=== PATIENT | male | born 1960 | race Caucasian/White ===

== ENCOUNTER → 2021-07-27 10:29 | Outpatient (BNVA) | payer OTHER, SELFPAY | PROVIDERS: PCP Internal Medicine; Visit Provider Psychiatry & Neurology Neurology ==

== ENCOUNTER → 2021-09-07 12:57 | Outpatient (REF) | payer OTHER, SELFPAY | LOC: HO.SL 12:57 | PROVIDERS: PCP Internal Medicine; Visit Provider Psychiatry & Neurology Neurology | DX: G47.33 Obstructive sleep apnea (adult) (pediatric) (principal) | CPT/HCPCS: 95806 ==

== ENCOUNTER 2025-03-16 09:41 | Outpatient (REF) | payer OTHER, SELFPAY ==
--- NOTE | ~2025-03-16 | XR_ITS ---
CLINICAL HISTORY: M25.532 - Pain in left wrist Radiographs of the left wrist, 3 views Comparison: None available Findings: Ossific fragment at the dorsal aspect of the wrist seen on the lateral view may indicate a triquetral fracture, age indeterminate. No dislocation. Moderate to severe degenerative change of the 1st carpometacarpal joint. Soft tissue swelling. Impression: Question age indeterminate triquetral fracture. Moderate to severe degenerative change of the 1st carpometacarpal joint. This document has been electronically signed by: Deja Colbert MD on 03/17/2025 13:10:46
--- OUTSIDE RECORDS SUMMARY | 2025-03-16 10:49 | XMS_ITS | Encounter Summary ---
Author Organization Gricelda Mcconnell [facility] Address [address] [place] [address] Care Team Providers Care Auto Service Mechanic Name Role Phone Nato Carpenter DO Unavailable [phone] Nato Carpenter DO Primary Care Provider [phone] Encounter Details Date Type Department Care Team (Latest Contact Info) Description 12/12/[address] [facility] Clinic [address] [address] Tommie Reid MD [address] [place] [address] Spinal stenosis, lumbar region, with neurogenic claudication (Primary Dx) Social History Tobacco Use Types Packs/Day Years Used Date Smoking Tobacco: Former Cigarettes 1 7 - 1990 Smokeless Tobacco: Never Alcohol Use Standard Drinks/Week Comments Not Currently 0 (1 standard drink = 0.6 oz pur e alcohol) quit 1988 , abuse AUDIT-C Answer Date Recorded Q1: How often do you have a drink containing alc ohol? Never 08/16/2020 Average Number of Drinks Not on file 021 Frequency of Binge Drinking Not on file 08/2020 Sex and Gender Information Value Date Recorded Sex Assigned at Male 04/08/2023 8:54 AM EDT Legal Sex Male 2:09 PM EST Gender Identity Male 04/08/2023 8:54 AM EDT Sexual Orientation Not on file documented as of this encounter Plan of Treatment Not on file documented as of this encounter Visit Diagnoses Diagnosis Spinal stenosis, lumbar region, with neurogenic claudication- Primary documented in this encounter Care Teams Auto Service Mechanic Relationship Specialty Start Date End Date Nato Carpenter DO [address] [place] [address] PCP - Insurance Assigned PCP 03/13/23 Nato Carpenter DO [address] [place] [address] PCP - General Internal Medicine 03/13/23 documented as of this encounter
--- OUTSIDE RECORDS SUMMARY | 2025-03-16 10:49 | XMS_ITS | Clinical Summary ---
Author Organization [facility] Address [address] [place] [address] Care Team Providers Care Event Specialist Product Demonstrator Name Role Phone Nato Carpenter Primary Care Provider [phone] Allergies Active Allergy Reactions Criticality Noted Date Comments [place] 05/04/2020 Medications Medication Sig Dispensed Refills Start Date End Date Status fluticasone (FLONASE) 50 MCG/ACT nasal spray spray/apply 2 sprays in each nostril daily. 0 02/21/2020 Active levothyroxine (SYNTHROID, LEVOXYL) tablet 50 mcg Take 50 mcg by mouth daily. 0 02/24/2020 Active sertraline (ZOLOFT) 25 MG tablet Take 37.5 mg by mouth daily. 0 02/22/2020 Active Active Problems Problem Noted Date Diagnosed Date Primary osteoarthritis of fi rst carpometacarpal joint of right hand 05/04/2020 Family History Medical History Relation Name Comments Arthritis Mother Blood Clots Mother Diabetes Mother Relation Name Status Comments Mother Social History Tobacco Use Types Packs/Day Years Used Date Smoking Tobacco: Never Smokeless Tobacco: Never Alcohol Use Standard Drinks/Week Comments No 0 (1 standard drink = 0.6 oz pur e alcohol) Sex and Gender Information Value Date Recorded Sex Assigned at Not on file Gender Identity Not on file Sexual Orientation Not on file Last Filed Vital Signs Vital Sign Reading Time Taken Comments Blood Pressure - - Pulse - - Temperature - - Respiratory Rate - - Oxygen Saturation - - Inhaled Oxygen Concentration - - Weight 78.5 kg (173 lb) 05/04/2020 3:25 PM EDT Height 170.2 cm (5' 7 ) 05/04/2020 3:25 PM EDT Body Mass Index 27.1 05/04/2020 3:25 PM EDT Plan of Treatment Health Maintenance Due Date Last Done Comments Hepatitis C Screening 1960 COVID-19 Vaccine (#1) 06/29/1960 Pneumococcal Vaccine (1 of 2 - PCV) 12/28/1965 Pneumococcal Vaccine (1 of 2 - PCV) 12/28/1965 Depression Screening 1971 BMI Counseling 12/28/1977 Preventative Health Evaluation 12/28/1977 DTap / Tdap / Td (1 - Tdap) 12/28/1978 Colon Cancer Screening (Colonoscopy) 12/28/2004 Shingrix-Zoster Vaccine (1 of 2) 12/28/2009 Fall Risk Assessment 12/28/2024 Influenza Vaccine (#1) 2025 RSV Adult > 60+ Yrs or Pregn ant (1 - 1-dose 75+ series) 12/28/2034 Hepatitis B Vaccines Aged Out No long er eligible based on patient's age to complete this topic RSV Ped < 20 months Aged Out No longe r eligible based on patient's age to complete this topic Insurance Payer Benefit Plan / Group Subscriber ID Effective Dates Phone Address [facility] [id number] 2020-Angie bruce [address] [place] [address] [facility] [place] Care Teams Event Specialist Product Demonstrator Relationship Specialty Start Date End Date Nato Carpenter DO [address] [place] [id number] PCP - General Internal Medicine 04/21/20
--- OUTSIDE RECORDS SUMMARY | 2025-03-16 10:49 | XMS_ITS | Clinical Summary ---
Author Organization Gricelda Mcconnell [facility] Address [address] [place] [address] Care Team Providers Care Pet Stylist Name Role Phone Nato Carpenter DO Unavailable [phone] Nato Carpenter DO Primary Care Provider [phone] Allergies Active Allergy Reactions Criticality Noted Date Comments Avocado Extract GI Intolerance 05/04/2020 Medications levothyroxine (SYNTHROID, LEVOXYL) 50 MCG tablet Take 1 tablet (50 mcg total) by mouth. 02/24/2020 Active sertraline (ZOLOFT) 25 MG tablet Take 1.5 tablets (37.5 mg total) by mouth. 02/22/2020 Active fluticasone propionate (FLONASE) 50 mcg/actuation nasal spray 2 sprays. 02/21/2020 Active multivitamin capsule Take 1 capsule by mouth daily. Active NIFEdipine ER (ADALAT CC) 30 MG ER tablet TAKE 1 TABLET BY MOUTH EVERY DAY ON EMPTY STOMACH FOR 30 DAYS 04/08/2023 Active methylPREDNISol one (MEDROL DOSEPACK) 4 mg tablet 02/25/2023 Active gabapentin (NEURONTIN) 300 MG capsule 05/23/2023 Active metaxalone (SKELAXIN) 800 MG tablet Take 1 tablet (800 mg total) by mouth 3 times a day. 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), left 08/16/2020 Cataract 08/16/2020 Borderline high cholesterol 08/16/2020 Borderline diabetes 08/16/2020 Primary osteoarthritis of fi rst carpometacarpal joint of right hand 05/04/2020 Family History Medical History Relation Comments Diabetes Mother Macular degeneration Mother Thyroid disease Mother Amblyopia Neg Hx Blindness Neg Hx Cancer Neg Hx Cataracts Neg Hx Glaucoma Neg Hx Relation Status Comments Mother Social History Tobacco Use Types Packs/Day Years Used Date Smoking Tobacco: Former Cigarettes 1 977 - 1990 Smokeless Tobacco: Never Tobacco Cessation:Counseling Given: Not Answered Alcohol Use Standard Drinks/Week Comments Not Currently 0 (1 standard drink = 0.6 oz pur e alcohol) quit 1988 , abuse AUDIT-C Answer Date Recorded Q1: How often do you have a drink containing alc ohol? Never 08/16/2020 Average Number of Drinks Not on file Frequency of Binge Drinking Not on file 08/2020 Sex and Gender Information Value Date Recorded Sex Assigned at Male 04/08/2023 8:54 AM EDT Legal Sex Male 2:09 PM EST Gender Identity Male 04/08/2023 8:54 AM EDT Sexual Orientation Not on file Last Filed Vital Signs Vital Sign Reading Time Taken Comments Blood Pressure 125/79 12/27/2023 10:37 AM EDT Pulse 65 12/27/2023 10:37 AM EDT Temperature 36.1 C (97 F) 12/27/2023 9:58 AM EDT Respiratory Rate 16 12/27/2023 10:37 AM EDT Oxygen Saturation 96% 12/27/2023 10:37 AM EDT Inhaled Oxygen Concentration - - Weight 78.9 kg (174 lb) 12/12/2023 2:21 PM EDT Height 170.2 cm (5' 7 ) 12/12/2023 2:21 PM EDT Body Mass Index 27.25 12/12/2023 2:21 PM EDT Plan of Treatment Health Maintenance Due Date Last Done Comments Lipid Panel 1959 PSA 1959 Prostate Cancer Screening 1959 SDM 1959 TSH Level 1959 Depression Screening 1963 Hepatitis C Screening 12/28/1977 DTaP,Tdap,and Td Vaccines (1 - Tdap) 12/28/1978 CT Colonography 12/28/2004 Colonoscopy 12/28/2004 Colorectal Cancer Screening 12/28/2004 FIT 12/28/2004 FOBT 12/28/2004 Multitarget Stool DNA (Cologuard) 12/28/2004 Sigmoidoscopy 12/28/2004 Pneumococcal Vaccine (1 of 1 - PCV) 12/28/2009 Zoster Vaccine (1 of 2) 12/28/2009 COVID-19 Vaccine (2023- season) 2024 06/22/2023, 04/18/2022, 01/31/2022, Additional history exists Blood Pressure 12/26/2024 12/27/2023 Influenza Vaccine (#1) 2025 05/14/2023, 2021 Meningococcal B Vaccines Aged Out No longer eligible based on patient's age to complete this topic Meningococcal Vaccines Aged Out No lo nger eligible based on patient's age to complete this topic Insurance [facility] [employer] Care Teams Pet Stylist Relationship Specialty Start Date End Date Nato Carpenter DO [address] [place] [id number] PCP - Insurance Assigned PCP 03/13/23 Nato Carpenter DO [address] [place] [id number] PCP - General Internal Medicine 03/13/23
--- OUTSIDE RECORDS SUMMARY | 2025-03-16 10:49 | XMS_ITS | Encounter Summary ---
Author Organization Gricelda Mcconnell [facility] Address [address] [place] [address] Care Team Providers Care Conference Center Manager Name Role Phone Nato Carpenter DO Unavailable [phone] Nato Carpenter DO Primary Care Provider [phone] Encounter Details Date Type Department Care Team (Latest Contact Info) Description 04/11/2023 Prep for Procedure [facility] Center Clinic [facility] Clinic [address] [facility] [address] [place] [address] Tommie Reid MD [address] [place] [address] Spinal stenosis, lumbar region, with neurogenic claudication [...] Primary documented in this encounter Care Teams Conference Center Manager Relationship Specialty Start Date End Date Nato Carpenter DO [address] [place] [address] PCP - Insurance Assigned PCP 03/13/23 Nato Carpenter DO [address] [place] [address] PCP - General Internal Medicine 03/13/23 documented as of this encounter
--- OUTSIDE RECORDS SUMMARY | 2025-03-16 10:49 | XMS_ITS | Clinical Summary ---
Author Organization [facility] [address] [facility] Address [address] [place] [address] Phone Care Team Providers Care Return To Vendor Name Role Phone Nato Carpenter DO Primary Care Provider [phone] Surgical History Surgery Date Site/Laterality Comments OTHER SURGICAL HISTORY PROCEDURE: NE NEPHROLITHOTOMY COMP CGEN KDN ABNORMALITY Medical History Medical History Date Comments Anxiety state DX:Anxiety state Social History Tobacco Use Types Packs/Day Years Used Date Smoking Tobacco: Former Cigarettes Smokeless Tobacco: Never Alcohol Use Standard Drinks/Week Comments Never 0 (1 standard drink = 0.6 oz pur e alcohol) Sex and Gender Information Value Date Recorded Sex Assigned at Not on file Legal Sex Male 7:04 AM EST Gender Identity Not on file Sexual Orientation Not on file Obstetrics History Last Filed Vital Signs Vital Sign Reading Time Taken Comments Blood Pressure 136/76 12/06/2021 1:40 PM EDT Pulse 66 12/06/2021 1:40 PM EDT Temperature - - Respiratory Rate - - Oxygen Saturation - - Inhaled Oxygen Concentration - - Weight 82.3 kg (181 lb 6.4 oz) 10/13/2021 2:59 P M EDT Height 166.4 cm (5' 5.5 ) 10/13/2021 2:59 PM EDT Body Mass Index 29.73 10/13/2021 2:59 PM EDT Plan of Treatment Upcoming Encounters Date Type Department Care Team (Late st Contact Info) Description 03/29/2025 8:20 AM EDT Office Visit Gastroenterology - [address] [address] Robert Dave PA [facility] [place] [address] Health Maintenance Due Date Last Done Comments DTaP,Tdap,and Td Vaccines (1 - Tdap) 12/28/1978 Pneumococcal Vaccine: 50+ Ye ars (1 of 1 - PCV) 12/28/2009 Zoster Vaccines (1 of 2) 12/28/2009 Abdominal Aortic Aneurysm (A AA) Screen 06/17/2022 Cholesterol Screening (Lipid Panel) 06/17/2022 Colorectal Cancer Screening: Colonoscopy 06/17/2022 Hepatitis C Screening 06/17/2022 Medicare Annual Wellness Visit 06/17/2022 Social Influencers of Health Screening 06/17/2022 Depression Screening 07/15/2024 Falls Risk Assessment 12/28/2024 COVID-19 Vaccine (1 - 2023-2 5 season) 2025 Influenza Vaccine (#1) 2025 RSV Immunization Adult Patie nts (1 - 1-dose 75+ series) 12/28/2034 HIB Vaccines Aged Out No longer eligi ble based on patient's age to complete this topic HPV Vaccines Aged Out No longer eligi ble based on patient's age to complete this topic Hepatitis A Vaccines Aged Out No long er eligible based on patient's age to complete this topic Hepatitis B Vaccines Aged Out No long er eligible based on patient's age to complete this topic IPV Vaccines Aged Out No longer eligi ble based on patient's age to complete this topic MMR Vaccines Aged Out No longer eligi ble based on patient's age to complete this topic Meningococcal ACWY Vaccine Aged Out N o longer eligible based on patient's age to complete this topic Meningococcal B Vaccine Aged Out No l onger eligible based on patient's age to complete this topic RSV Immunization Patients Un keturah 20 months Aged Out No longer eligible b ased on patient's age to complete this topic Varicella Vaccines Aged Out No longer eligible based on patient's age to complete this topic Insurance [employer] [place] [address] Care Teams Return To Vendor Relationship Specialty Start Date End Date Nato Carpenter DO [address] [place] [id number] PCP - General Internal Medicine 10/04/21
== END 2025-03-16 09:42 | disposition home or self-care (01) ==
LOC: HO.HOSX 09:41
PROVIDERS: Visit Provider Orthopaedic Surgery
DX: S66.812D Strain of other specified muscles, fascia and tendons at wrist and hand level, left hand, subsequent encounter (principal); Y92.129 Unspecified place in nursing home as the place of occurrence of the external cause; Y99.0 Civilian activity done for income or pay; X50.0XXD Overexertion from strenuous movement or load, subsequent encounter
CPT/HCPCS: 73110; 99212

== ENCOUNTER 2025-03-16 10:13 | Outpatient (AMB) | payer OTHER, SELFPAY ==
--- NOTE | 2025-03-16 10:51 | MHC.OFFVIS ---
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 He had soreness and swelling, presented to an urgent care where x-rays were taken and referred to orthopedics. Today patient reports that his symptoms have improved since injury. He has been using a wrist brace and avoiding use of left hand. He is currently working on light duty restrictions. Allergies avocado Allergy (Mild, Verified 03/16/25 11:13) flu symptoms HPI HPI FC- LT Triquetral fx: Details: Markel is a 64 year old right hand dominant man who presents for a possible left wrist fracture, S/P injury, DOI: ~03/03/25. He says he was working on rolling a patient over when he felt/heard painful pops in the volar aspect of his left distal forearm. He was seen by [facility] for this and placed in a splint. He was having difficulty finding an orthopedic office who would take his workers [employer] insurance. He says he is doing better now since his injury. He says most of his pain is in volar mid forearm. He says his wrist isn't really bothering him.. He has been modifying his activities which has helped. 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 He says due to an old table saw injury, he had a tendon transfer procedure from his right ankle/foot to his left hand in ~2012. He says this went well. 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 Review of Systems Const All systems reviewed & are unremarkable except as noted in HPI and below Physical Exam Vital Signs: BMI result Body Mass Index 25.8 Const General: cooperative, healthy appearing and no acute distress Orientation/consciousness: patient oriented x3 HEENT Head: Yes normocephalic and Yes atraumatic Eyes EOM: EOMs intact bilaterally Resp Effort & Inspection: normal respiratory effort and able to speak in complete sentences Cardio Jugular venous distension: no JVD Skin General skin exam: turgor normal Rashes: no rashes Neuro General: patient oriented x3 Extrem Other: Evaluation of Left Upper Extremity: The patient is alert, oriented, and in no acute distress Neuro: Median, Ulnar, Radial nerves motor and sensory grossly intact . Vascular: Cap refill brisk Please note that he had an old left hand table saw injury that underwent multiple, 6 exactly, surgical procedures. This left him essentially with what appears to be functionally an arthrodesis of the IP joint of the thumb, a partial amputation of the left ring finger at about the middle phalanx, and a flexion contracture of the left middle finger PIP and D IP joints where he can bring it close to a fist but not bring it into full extension. All in all his left hand works quite well for him however. The index and small finger appeared to have relatively full function ROM: He can make a fist and extend all his digits except as noted above No locking or catching Resolving volar forearm ecchymosis ~8cm proximal to volar distal wrist crease Tender over this area Mild tenderness at myotendendinous junctions of the finger & wrist flexors No tenderness over the Triquetrum No tenderness over the radial styloid No tenderness over any bones in the dorsal aspect of the wrist No snuffbox or scaphoid tubercle tenderness No distal radius, distal ulna, or DRUj tenderness Radiographs: 3 views of the let wrist were taken and viewed by me today in clinic. They show a question of an intra-articular fracture line of the radial styloid seen on oblique view. There are also some dorsal fragments seen just dorsal to the wrist, possible triquetral fracture but he is completely non-tender over both of these area today in clinic. No fractures or dislocations. He has some basal joint arthritis Psych Appearance: grossly normal Affect: normal affect Attitude: cooperative Assessment & Plan Assessment & Plan (1) Muscle tear: Comment: Partial FCR muscle tear at myotendinous junction Code(s): T14.8XXA - Other injury of unspecified body region, initial encounter Category: Medical (2) Left wrist pain: Code(s): M25.532 - Pain in left wrist Category: Medical Plan Assessment & Plan: 1. Left wrist partial FCR muscle tear at myotendinous junction DOI: ~03/03/25 Suggestion of fracture on radiographs, no tenderness on PE today, therefore I believe no acute fractures This is a work related injury I educated him about this condition I discussed non-operative treatment option I recommend activity modification, and he is in agreement He was fitted for a velcro wrist splint to be worn at work or with heavy daily activities for the next 4 weeks I discussed activity modifications, he is to lift nothing heavier than 10lbs for the next 4 weeks. 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 No Radiographs Scribed for Elaine Levin MD by Owen Lara, medical orderly, on 03/16/25 at 11:00 AM, EST. Orders: Orders XR wrist LT min 3V Today M25.532 - Pain in left wrist Coding Level of Care Code Est Pt Level 4 (21035) Diagnoses Muscle tear T14.8XXA Left wrist pain M25.532
[2025-03-16 11:13] VITALS: BMI 25.8
== END 2025-03-16 11:14 | disposition home or self-care (01) ==
LOC: HO.HOS 10:13
PROVIDERS: PCP Internal Medicine; Visit Provider Orthopaedic Surgery
DX: T14.8XXA Other injury of unspecified body region, initial encounter (principal); M25.532 Pain in left wrist
CPT/HCPCS: 99214

== ENCOUNTER → 2025-03-16 10:20 | Outpatient (BNV) | payer OTHER, SELFPAY | PROVIDERS: Visit Provider Radiology Diagnostic Radiology | DX: M18.12 Unilateral primary osteoarthritis of first carpometacarpal joint, left hand (principal) | CPT/HCPCS: 73110 ==

== ENCOUNTER 2025-04-14 08:18 | Outpatient (AMB) | payer OTHER, SELFPAY ==
--- OUTSIDE RECORDS SUMMARY | 2025-04-14 08:46 | XMS_ITS | Encounter Summary ---
Author Organization Gricelda Mcconnell [facility] Address [address] [place] [address] Care Team Providers Care Processing Associate Name Role Phone Nato Carpenter DO Unavailable [phone] Nato Carpenter DO Primary Care Provider [phone] Encounter Details Date Type Department Care Team (Latest Contact Info) Description 12/12/2023 Prep for Procedure [facility] Pain Center [facility] Clinic [address] [address] Tommie Reid MD [address] [place] [address] Spinal stenosis, lumbar region, with neurogenic claudication [...] Primary documented in this encounter Care Teams Processing Associate Relationship Specialty Start Date End Date Nato Carpenter DO [address] [place] [address] PCP - Insurance Assigned PCP 03/13/23 Nato Carpenter DO [address] [place] [address] PCP - General Internal Medicine 03/13/23 documented as of this encounter
--- OUTSIDE RECORDS SUMMARY | 2025-04-14 08:46 | XMS_ITS | Encounter Summary ---
Author Organization Gricelda Mcconnell [facility] Address [address] [place] [address] Care Team Providers Care Sliver Machine Operator Name Role Phone Nato Carpenter DO Unavailable [phone] Nato Carpenter DO Primary Care Provider [phone] Encounter Details Date Type Department Care Team (Latest Contact Info) Description 04/11/2023 Prep for Procedure [facility] Pain Center Clinic [facility] Center Clinic [address] [facility] [address] [place] [address] Tommie Reid MD [address] [place] [address] Spinal stenosis, lumbar region, with neurogenic claudication [...] Primary documented in this encounter Care Teams Sliver Machine Operator Relationship Specialty Start Date End Date Nato Carpenter DO [address] [place] [address] PCP - Insurance Assigned PCP 03/13/23 Nato Carpenter DO [address] [place] [address] PCP - General Internal Medicine 03/13/23 documented as of this encounter
--- OUTSIDE RECORDS SUMMARY | 2025-04-14 08:46 | XMS_ITS | Clinical Summary ---
Author Organization [facility] Address [address] [place] [address] Care Team Providers Care High School Band Director Name Role Phone Nato Carpenter Primary Care Provider [phone] Allergies Active Allergy Reactions Criticality Noted Date [...] Group Subscriber ID Effective Dates Phone Address [facility] [id number] 2020-Angie bruce [address] [place] [address] [facility] [place] Care Teams High School Band Director Relationship Specialty Start Date End Date Nato Carpenter DO [address] [place] [id number] PCP - General Internal Medicine 04/21/20
--- OUTSIDE RECORDS SUMMARY | 2025-04-14 08:46 | XMS_ITS | Clinical Summary ---
Author Organization Gricelda Mcconnell [facility] Address [address] [place] [address] Care Team Providers Care Podiatric Aide Name Role Phone Nato Carpenter DO Unavailable [phone] Nato Carpenter DO Primary Care Provider [phone] Allergies Active Allergy Reactions Criticality Noted Date [...] Stool DNA (Cologuard) 12/28/2004 Sigmoidoscopy 12/28/2004 Pneumococcal Vaccine: 50+ Years (1 of 1 - PCV) 12/28/2009 Zoster Vaccine (1 of 2) 12/28/2009 Blood Pressure 12/26/2024 12/27/2023 COVID-19 Vaccine ( season) 2025 06/22/2023, 04/18/2022, 01/31/2022, Additional history exists Influenza Vaccine (#1) 2025 05/14/2023, 2021 Meningococcal B Vaccines Aged Out No longer eligible based on patient's age to complete this topic Meningococcal Vaccines Aged Out No lo nger eligible based on patient's age to complete this topic Insurance [facility] [employer] Care Teams Podiatric Aide Relationship Specialty Start Date End Date Nato Carpenter DO [address] [place] [id number] PCP - Insurance Assigned PCP 03/13/23 Nato Carpenter DO [address] [place] [address] PCP - General Internal Medicine 03/13/23
--- NOTE | 2025-04-14 08:57 | MHC.OFFVIS ---
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 At his last visit it was discuss to treat this injury as a non-operative treatment. Patient was fitted for a velcro wrist brace, he was advise to modify his activities, lift nothing heavier than 10lbs for the next 4 weeks. 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 Today patient states he feels aches on his wrist randomly through out the day. Xray updated in office. Allergies avocado Allergy (Mild, Verified 04/14/25 09:01) flu symptoms HPI HPI OV- LT Triquetral fx: Details: Markel is a 64 year old right hand dominant man who returns for a left wrist FCR tear, S/P injury, DOI: ~03/03/25. He says he was working on rolling a patient over when he felt/heard painful pops in the volar aspect of his left distal forearm. He says the pain in his forearm has improved. He has been modifying his activities & wearing his brace, which has helped. 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 He has been working light duty with a 10lb weight limit He says due to an old table saw injury, he had a tendon transfer procedure from his right ankle/foot to his left hand in ~2012. He says this went well. 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 Vascular: Cap refill brisk Please note that he had an old left hand table saw injury that underwent multiple, 6 exactly, surgical procedures. This left him essentially with what appears to be functionally an arthrodesis of the IP joint of the thumb, a partial amputation of the left ring finger at about the middle phalanx, and a flexion contracture of the left middle finger PIP and D IP joints where he can bring it close to a fist but not bring it into full extension. All in all his left hand works quite well for him however. The index and small finger appeared to have relatively full function ROM: He can make a fist and extend all his digits except as noted above No locking or catching Resolved ecchymosis He no longer has tenderness in the volar mid forearm where he previously had tenderness at myotendendinous junctions of the finger & wrist flexors He can make a tight fist with no pain in the mid forearm Again, No tenderness over the Triquetrum, the pisotriquetral joint or the pisiform today No tenderness over the radial styloid Radiographs: 3 views of the let wrist were taken and viewed by me today in clinic. They show some dorsal fragments seen just dorsal to the wrist, possible triquetral fracture but he is completely non-tender over this area today in clinic. No fractures or dislocations. He has some basal joint arthritis Assessment & Plan Assessment & Plan (1) Left wrist pain: Code(s): M25.532 - Pain in left wrist Category: Medical (2) Muscle tear: Comment: Partial FCR muscle tear at myotendinous junction Code(s): T14.8XXA - Other injury of unspecified body region, initial encounter Category: Medical Plan Assessment & Plan: 1. Left wrist partial FCR muscle tear at myotendinous junction DOI: ~03/03/25 Suggestion of an old triquetral fracture on radiographs, no tenderness on PE today, therefore I believe no acute fractures This is a work related injury I educated him about this condition I discussed non-operative treatment option I recommend activity modification, and he is in agreement He will continue to wear his velcro wrist splint at work or with heavy daily activities for the next few weeks. He can discontinue this when he has returned to normal daily activities I discussed activity modifications, he is to slowly increase his weight limit and activities as tolerated. He can return to the gym but should start at lower weight and slowly increase his activities as tolerated. 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 He will follow up prn Scribed for Elaine Levin MD by Owen Lara, medical assistant instructor, on 04/14/25 at 9:40 AM, EST. Orders: Orders XR wrist LT min 3V Today M25.532 - Pain in left wrist Coding Level of Care Code Est Pt Level 3 (04752) Diagnoses Left wrist pain M25.532 Muscle tear T14.8XXA
[2025-04-14 08:58] VITALS: BMI 25.8
== END 2025-04-14 09:45 | disposition home or self-care (01) ==
LOC: HO.HOS 08:19
PROVIDERS: PCP Internal Medicine; Visit Provider Orthopaedic Surgery
DX: M25.532 Pain in left wrist (principal); T14.8XXA Other injury of unspecified body region, initial encounter
CPT/HCPCS: 99213

== ENCOUNTER → 2025-04-14 08:22 | Outpatient (BNV) | payer OTHER, SELFPAY | PROVIDERS: Visit Provider Radiology Diagnostic Radiology | DX: M85.842 Other specified disorders of bone density and structure, left hand (principal); M18.12 Unilateral primary osteoarthritis of first carpometacarpal joint, left hand | CPT/HCPCS: 73110 ==

== ENCOUNTER 2025-04-14 11:58 | Outpatient (REF) | payer OTHER, SELFPAY ==
--- NOTE | ~2025-04-14 | XR_ITS ---
EXAMINATION: XR WRIST 3 OR MORE VIEWS LEFT HISTORY: M25.532 - Pain in left wrist COMPARISON: Comparison is made with the prior examination dated 03/16/2025. FINDINGS: Three views of the left wrist are submitted. Osseous mineralization is normal. Again seen are osseous densities of the dorsum of the wrist which may represent a triquetral fracture. There is moderate osteoarthritis of the 1st carpometacarpal joint. The soft tissues are unremarkable. XR/XR wrist LT min 3V IMPRESSION: Osseous densities at the dorsum of the wrist which may represent a triquetral fracture without change. Moderate osteoarthritis of the 1st carpometacarpal joint. Electronically signed by: Kin Nelson MD 04/14/2025 08:46 AM EDT
--- OUTSIDE RECORDS SUMMARY | 2025-04-15 13:43 | XMS_ITS | Clinical Summary ---
Author Organization [facility] Address [address] [place] [address] Care Team Providers Care Acting Manager Name Role Phone Nato Carpenter Primary Care Provider [phone] Allergies Active Allergy Reactions Criticality Noted Date [...] Group Subscriber ID Effective Dates Phone Address [facility] [id number] 2020-Angie bruce [address] [place] [address] [facility] Care Teams Acting Manager Relationship Specialty Start Date End Date Nato Carpenter DO [address] [place] [id number] PCP - General Internal Medicine 04/21/20
--- OUTSIDE RECORDS SUMMARY | 2025-04-15 13:43 | XMS_ITS | Encounter Summary ---
Author Organization Gricelda Mcconnell [facility] Address [address] [place] [address] Care Team Providers Care Car Repair Supervisor Name Role Phone Nato Carpenter DO Unavailable [phone] Nato Carpenter DO Primary Care Provider [phone] Encounter Details Date Type Department Care Team (Latest Contact Info) Description 04/11/2023 Prep for Procedure [facility] Center [facility] [address] [facility] [address] [place] [address] Tommie Reid MD [address] [place] [address] Spinal stenosis, lumbar region, with neurogenic claudication [...] Primary documented in this encounter Care Teams Car Repair Supervisor Relationship Specialty Start Date End Date Nato Carpenter DO [address] [place] [address] PCP - Insurance Assigned PCP 03/13/23 Nato Carpenter DO [address] [place] [address] PCP - General Internal Medicine 03/13/23 documented as of this encounter
--- OUTSIDE RECORDS SUMMARY | 2025-04-15 13:43 | XMS_ITS | Clinical Summary ---
Author Organization Gricelda Mcconnell [facility] Address [address] [place] [address] Care Team Providers Care Construction Administrative Assistant Name Role Phone Nato Carpenter DO Unavailable [phone] Nato Carpenter DO Primary Care Provider [phone] Allergies Active Allergy Reactions Criticality Noted Date [...] patient's age to complete this topic Insurance [facility] [employer] Care Teams Construction Administrative Assistant Relationship Specialty Start Date End Date Nato Carpenter DO [address] [place] [id number] PCP - Insurance Assigned PCP 03/13/23 Nato Carpenter DO [address] [place] [address] PCP - General Internal Medicine 03/13/23
--- OUTSIDE RECORDS SUMMARY | 2025-04-15 13:43 | XMS_ITS | Clinical Summary ---
Author Organization [facility] [address] [facility] Address [address] [place] [address] Phone Care Team Providers Care Gunstock Spray Unit Feeder Name Role Phone Nato Carpenter Primary Care Provider [phone] Surgical History Surgery Date Site/Laterality Comments OTHER SURGICAL HISTORY PROCEDURE: [place] NEPHROLITHOTOMY COMP CGEN KDN ABNORMALITY Medical History [...] 10/13/2021 2:59 PM EDT Plan of Treatment Health Maintenance Due Date Last Done Comments Colorectal Cancer Screening: Colonoscopy 1960 Pneumococcal Vaccine: 50+ Years (1 of 1 - PCV) 12/28/2009 Zoster Vaccines (1 of 2) 12/28/2009 Abdominal Aortic Aneurysm (AAA) Screen 06/17/2022 Hepatitis C Screening 06/17/2022 Medicare Annual Wellness Visit 06/17/2022 Social Influencers of Health Screening 06/17/2022 Depression Screening 07/15/2024 Falls Risk Assessment 12/28/2024 COVID-19 Vaccine ( season) 2025 04/13/2024, 06/22/2023, 04/18/2022, Additional history exists Influenza Vaccine (#1) 2025 , 05/14/2023, 05/16/2022 Cholesterol Screening (Lipid Panel) 04/15/2030 04/15/2025 DTaP,Tdap,and Td Vaccines (2 - Td or Tdap) 01/01/2034 01/02/2024 RSV Immunization Adult Patients (1 - 1-dose 75+ series) 12/28/2034 Hepatitis B Vaccines Completed 12/13/2018, 06/11/2018, 05/10/2018 HIB Vaccines Aged Out No longer eligi [...] to complete this topic RSV Immunization Patients Under 20 months Aged Out No longer eligible based on patient's age to complete this topic Varicella Vaccines Aged Out No longer eligible based on patient's age to complete this topic Procedures Procedure Name Priority Date/Time Associated Diagnosis Comments CBC WITH AUTO DIFFERENTIAL Routine 04/15/2025 10:34 AM EDT Myxedema heart disease Routine general medical examination at a health care facility Impaired fasting glucose PROSTATE SPECIFIC ANTIGEN SCREEN Routine 04/15/2025 10:34 AM EDT Myxedema heart disease Routine general medical examination at a health care facility Impaired fasting glucose Elevated prostate specific antigen (PSA) Encounter for screening for malignant neoplasm of prostate COMPREHENSIVE METABOLIC PANEL Routine 04/15/2025 10:34 AM EDT Myxedema heart disease Routine general medical examination at a health care facility Impaired fasting glucose CBC AND DIFFERENTIAL Routine 04/15/2025 10:34 AM EDT Myxedema heart disease Routine general medical examination at a health care facility Impaired fasting glucose LIPID PANEL WITH REFLEX TO DIRECT LDL Routine 04/15/2025 10:34 AM EDT Myxedema heart disease Routine general medical examination at a health care facility Impaired fasting glucose from Last 3 Months Results * Prostate specific antigen screen (04/15/2025 10:34 AM EDT) PSA 1.46 0.00 - 4.00 ng/mL LAB CHEMISTRY METHOD 04/15/2025 12:57 PM EDT [facility] Blood Venous blood specimen / Unknown Venipuncture / Unknown 04/15/2025 10:34 AM EDT 04/15/2025 10:34 AM EDT Narrative [facility] - 04/15/2025 12:57 PM EDT The Siemens Advia Centaur Chemiluminescent Immunoassay is used. Results obtained with different assay methods or kits cannot be used interchangeably. Results cannot be interpreted as absolute evidence of the presence or absence of malignant disease. us Kamari Levy MD LAB BLOOD ORDERABLES Final Result [facility] [address] [place] [address], [place] [phone] * (ABNORMAL) Lipid panel with reflex to direct LDL (04/15/2025 10:34 AM EDT) Cholesterol 190 0 - 200 mg/dL LAB CHEMISTRY METHOD 04/15/2025 12:04 PM EDT [facility] Triglycerides 99 0 - 150 mg/dL LAB CHEMISTRY METHOD 04/15/2025 12:04 PM EDT [facility] HDL 57 >=40 mg/dL LAB CHEMISTRY METHOD 04/15/2025 12:04 PM EDT [facility] LDL Calculated 113(H) 0 - 100 mg/dL LAB CHEMISTRY METHOD 04/15/2025 12:04 PM EDT [facility] Comment:Estimated LDL Calcul ated using equation: Total cholesterol - HDL cholesterol - (Triglycerides/5) VLDL Cholesterol Bar 19.8 mg/dL LAB CHEMISTRY METHOD 04/15/2025 12:04 PM EDT [facility] Non HDL Chol. (LDL+VLDL) 133 <145 mg/dL LAB CHEMISTRY METHOD 04/15/2025 12:04 PM EDT [facility] Chol/HDL Ratio 3.3 0.0 - 4.4 LAB CHEMISTRY METHOD 04/15/2025 12:04 PM EDT [facility] Blood Venous blood specimen / Unknown Venipuncture / Unknown 04/15/2025 10:34 AM EDT 04/15/2025 10:34 AM EDT Jessica Liu CORROSION CONTROL ENGINEER LAB BLOOD ORDERABLES Fi nal Result [facility] [address] [place] [address], * (ABNORMAL) CBC auto differential (04/15/2025 10:34 AM EDT) WBC 5.0 4.8 - 10.8 K/mcL LAB HEMETOLOGY METHOD 04/15/2025 11:10 AM EDT [facility] RBC 4.70 4.50 - 5.50 M/mcL LAB HEMETOLOGY METHOD 04/15/2025 11:10 AM EDT [facility] Hemoglobin 15.0 13.5 - 17.5 g/dL LAB HEMETOLOGY METHOD 04/15/2025 11:10 AM EDT [facility] Hematocrit 44.9 42.0 - 54.0 % LAB HEMETOLOGY METHOD 04/15/2025 11:10 AM EDT [facility] MCV 95.5 79.0 - 98.0 FL LAB HEMETOLOGY METHOD 04/15/2025 11:10 AM [facility] MCH 31.9 27.0 - 32.0 pcg LAB HEMETOLOGY METHOD 04/15/2025 11:10 AM [facility] MCHC 33.4 32.0 - 37.0 g/dL LAB HEMETOLOGY METHOD 04/15/2025 11:10 AM [facility] RDW 12.1 11.0 - 15.0 % LAB HEMETOLOGY METHOD 04/15/2025 11:10 AM [facility] Platelets 262 130 - 400 K/mcL LAB HEMETOLOGY METHOD 04/15/2025 11:10 AM [facility] MPV 8.3 7.0 - 11.0 FL LAB HEMETOLOGY METHOD 04/15/2025 11:10 AM [facility] NRBC 0.0 <1.0 % LAB HEMETOLOGY METHOD 04/15/2025 11:10 AM [facility] NRBC Absolute 0.00 <0.10 K/mcL LAB HEMETOLOGY METHOD 04/15/2025 11:10 AM [facility] Neutrophils Relative 71.4 % LAB HEMETOLOGY METHOD 04/15/2025 11:10 AM [facility] Lymphocytes Relative 11.5 % LAB HEMETOLOGY METHOD 04/15/2025 11:10 AM [facility] Monocytes Relative 10.7 % LAB HEMETOLOGY METHOD 04/15/2025 11:10 AM [facility] Eosinophils Relative 5.6 % LAB HEMETOLOGY METHOD 04/15/2025 11:10 AM [facility] Basophils Relative 0.4 % LAB HEMETOLOGY METHOD 04/15/2025 11:10 AM EDT [facility] Immature Granulocytes Relative 0.4 % LAB HEMETOLOGY METHOD 04/15/2025 11:10 AM EDT [facility] Neutrophils Absolute 3.59 1.50 - 7.00 K/[facility] LAB HEMETOLOGY METHOD 04/15/2025 11:10 AM [facility] Lymphocytes Absolute 0.58(L) 1.00 - 5.00 K/mcL LAB HEMETOLOGY METHOD 04/15/2025 11:10 AM EDT [facility] Monocytes Absolute 0.54 0.20 - 1.00 K/[facility] LAB HEMETOLOGY METHOD 04/15/2025 11:10 AM EDT [facility] Eosinophils Absolute 0.28 0.00 - 0.50 K/mcL LAB HEMETOLOGY METHOD 04/15/2025 11:10 AM [facility] Basophils Absolute 0.02 0.00 - 0.20 K/mcL LAB HEMETOLOGY METHOD 04/15/2025 11:10 AM [facility] Immature Granulocytes Absolute 0.02 0.00 - 0.03 K/mcL LAB HEMETOLOGY METHOD 04/15/2025 11:10 AM [facility] Blood Venous blood specimen / Unknown Venipuncture / Unknown 04/15/2025 10:34 AM EDT 04/15/2025 10:34 AM EDT us Jessica Liu CORROSION CONTROL ENGINEER LAB BLOOD ORDERABLES Fi nal Result [facility] [address] [place] [address], * (ABNORMAL) Comprehensive metabolic panel (04/15/2025 10:34 AM EDT) Sodium 138 133 - 145 mmol/L LAB CHEMISTRY METHOD 04/15/2025 12:04 PM EDT [facility] Potassium 4.4 3.5 - 5.5 mmol/L LAB CHEMISTRY METHOD 04/15/2025 12:04 PM [facility] Chloride 106 96 - 110 mmol/L LAB CHEMISTRY METHOD 04/15/2025 12:04 PM [facility] CO2 27 21 - 32 mmol/L LAB CHEMISTRY METHOD 04/15/2025 12:04 PM [facility] Anion Gap 5 3 - 11 LAB CHEMISTRY METHOD 04/15/2025 12:04 PM [facility] Glucose 116(H) 70 - 100 mg/dL LAB CHEMISTRY METHOD 04/15/2025 12:04 PM [facility] BUN 17 5 - 25 mg/dL LAB CHEMISTRY METHOD 04/15/2025 12:04 PM [facility] Creatinine 1.02 0.70 - 1.30 mg/dL LAB CHEMISTRY METHOD 04/15/2025 12:04 PM [facility] eGFR 82 >=60 mL/min/1. 73m2 LAB CHEMISTRY METHOD 04/15/2025 12:04 PM [facility] Comment:Calculation based on the Chronic Kidney Disease Epidemiology Collaboration (CKD-EPI) equation refit without adjustment for race. BUN/Creatinine Ratio 16.7 LAB CHEMISTRY METHOD 04/15/2025 12:04 PM [facility] Calcium 9.5 8.5 - 10.5 mg/dL LAB CHEMISTRY METHOD 04/15/2025 12:04 PM [facility] AST (SGOT) 29 10 - 42 unit/L LAB CHEMISTRY METHOD 04/15/2025 12:04 PM [facility] ALT (SGPT) 42 10 - 60 unit/L LAB CHEMISTRY METHOD 04/15/2025 12:04 PM [facility] Alkaline Phosphatase 50 42 - 121 unit/L LAB CHEMISTRY METHOD 04/15/2025 12:04 PM [facility] Total Protein 6.6 6.0 - 8.0 g/dL LAB CHEMISTRY METHOD 04/15/2025 12:04 PM EDT [facility] Albumin 3.6 3.2 - 5.0 g/dL LAB CHEMISTRY METHOD 04/15/2025 12:04 PM EDT [facility] Total Bilirubin 0.6 0.0 - 1.4 mg/dL LAB CHEMISTRY METHOD 04/15/2025 12:04 PM EDT [facility] Blood Venous blood specimen / Unknown Venipuncture / Unknown 04/15/2025 10:34 AM EDT 04/15/2025 10:34 AM EDT Jessica Liu CORROSION CONTROL ENGINEER LAB BLOOD ORDERABLES Fi nal Result [facility] [address] [place] [address], from Last 3 Months Insurance [employer] [address] Care Teams Gunstock Spray Unit Feeder Relationship Specialty Start Date End Date Nato Carpenter DO [address] [place] [id number] PCP - General Internal Medicine 10/04/21
--- OUTSIDE RECORDS SUMMARY | 2025-04-15 13:43 | XMS_ITS | Encounter Summary ---
Author Organization Gricelda Mcconnell [facility] Address [address] [place] [address] Care Team Providers Care Sponge Clipper Name Role Phone Nato Carpenter DO Unavailable [phone] Nato Carpenter DO Primary Care Provider [phone] Encounter Details Date Type Department Care Team (Latest Contact Info) Description 12/12/2023 Prep for Procedure [facility] Pain Center [facility] [address] [address] Tommie Reid MD [address] [place] [address] Spinal stenosis, lumbar region, with neurogenic claudication [...] Primary documented in this encounter Care Teams Sponge Clipper Relationship Specialty Start Date End Date Nato Carpenter DO [address] [place] [address] PCP - Insurance Assigned PCP 03/13/23 Nato Carpenter DO [address] [place] [address] PCP - General Internal Medicine 03/13/23 documented as of this encounter
== END 2025-04-14 11:59 | disposition home or self-care (01) ==
LOC: HO.HOSX 11:58
PROVIDERS: Visit Provider Orthopaedic Surgery
DX: S56.212A Strain of other flexor muscle, fascia and tendon at forearm level, left arm, initial encounter (principal); X50.0XXA Overexertion from strenuous movement or load, initial encounter; Y92.129 Unspecified place in nursing home as the place of occurrence of the external cause; Y93.89 Activity, other specified; Y99.0 Civilian activity done for income or pay
CPT/HCPCS: 73110; 99212